=== PATIENT | male | born 1940 | race Caucasian/White ===

== ENCOUNTER 2022-03-14 13:51 | Emergency (ER) | payer OTHER, MEDICARE ==
[2022-03-14] MEDS: fentaNYL 50 MCG/ML SDV IVPUSH ONE (14:37)
[2022-03-14] MEDS: Take Home: Acetaminophen/HYDROcodone 325-5 MG, 5 Tab Pack PO ONE (16:33)
== END 2022-03-14 16:57 | disposition home or self-care (01) ==
LOC: VM.ED 13:51
DX: M54.50 Low back pain, unspecified (principal); E11.22 Type 2 diabetes mellitus with diabetic chronic kidney disease; N18.9 Chronic kidney disease, unspecified; I25.10 Atherosclerotic heart disease of native coronary artery without angina pectoris; G30.9 Alzheimer's disease, unspecified; Z88.0 Allergy status to penicillin
CPT/HCPCS: 71045; 72100; 96374; 99283; 99284-25; A9270-GY; J3010